=== PATIENT | female | born 1980 | race Caucasian/White ===

== ENCOUNTER 2025-02-03 14:22 | Emergency (ER) | payer BC, MEDICAID ==
[~2025-02-03] VITALS: Ht 165.1 cm; Wt 114.0 kg
[2025-02-03 14:25] VITALS: O2SAT 99
[2025-02-03] MEDS ORDERED: POLYETHYLENE GLYCOL 3350 (17GM) 1 DOSE PACK PO ONE (15:00)
[2025-02-03] MEDS ORDERED: KETOROLAC 15MG/ML VIAL IV ONE (15:00)
[2025-02-03] MEDS ORDERED: ONDANSETRON HCL 4MG/2ML INJ IV ONE (15:00)
[2025-02-03] MEDS: SODIUM CHLORIDE 0.9% 1,000 ML IV ONE (15:28)
[2025-02-03 15:40] LABS: BASOPHILS % 1.0 % (0.0-2.0); EOSINOPHILS % 0.5 % (0.0-5.0); HEMATOCRIT. 41.9 % (36.0-48.0); HEMOGLOBIN. 13.7 g/dL (12.0-16.0); LYMPHOCYTES % 14.6 % (20.0-50.0); MEAN PLATELET VOLUME 8.4 fl (7.4-10.4); MONOCYTES % 6.8 % (2.0-8.0); NEUTROPHILS % 77.1 % (40.0-76.0); PLATELET 433 x1000/uL (130-400); RED BLOOD CELL COUNT 4.87 mill/uL (4.2-5.4); RED CELL DISTRIBUTION WIDTH 14.3 % (11.6-14.6)
[2025-02-03 15:55] LABS: CREATININE 0.9 mg/dL (0.6-1.0)
[2025-02-03 15:56] LABS: UREA NITROGEN BLOOD < 5 mg/dL (9-23)
[2025-02-03 15:57] LABS: ASPARTATE AMINOTRANSFERASE 43 IU/L (<34); B-HCG QUANTITATIVE < 1 mIU/mL (<6)
[2025-02-03 15:58] LABS: BILIRUBIN DIRECT 0.2 mg/dL (<=3.0); BILIRUBIN TOTAL 0.6 mg/dL (0.1-1.0); PROTEIN TOTAL 8.6 g/dL (6.0-8.3)
[2025-02-03 16:57] LABS: CLARITY URINE CLOUDY (CLEAR); COLOR URINE DARK YELLOW (YELLOW); GLUCOSE URINE NEGATIVE (NEGATIVE); KETONES URINE 1+ (NEGATIVE); LEUKOCYTE ESTERASE URINE 1+ (NEGATIVE); NITRITE URINE NEGATIVE (NEGATIVE); OCCULT BLOOD URINE NEGATIVE (NEGATIVE); PH URINE 7.0 (4.5-8.0); PROTEIN URINE TRACE (NEGATIVE); SPECIFIC GRAVITY URINE 1.023 (1.005-1.030); UROBILINOGEN URINE 1.0 E.U./dL (0.2-1.0)
[2025-02-03 17:13] LABS: BACTERIA URINE 3+; RBC URINE 0-2 /hpf (0-2); SQUAMOUS EPITHELIAL CELL URINE 3+ /lpf (RARE/1+)
[2025-02-03] MEDS: ONDANSETRON HCL 4MG/2ML INJ IV SCH (17:17)
[2025-02-03] MEDS: KETOROLAC 15MG/ML VIAL IV SCH (17:17)
[2025-02-03] MEDS: LORAZEPAM 2MG/ML UD SYRINGE IV SCH (17:17)
[2025-02-03 17:20] LABS: *AMPHETAMINES SCREEN URINE NEGATIVE (NEGATIVE); *BARBITURATES SCREEN URINE NEGATIVE (NEGATIVE); *BENZODIAZEPINES SCREEN URINE NEGATIVE (NEGATIVE); *COCAINE SCREEN URINE NEGATIVE (NEGATIVE); CANNABINOID URINE SCREEN NEGATIVE (NEGATIVE); ECSTASY MDMA SCREEN URINE NEGATIVE (NEGATIVE); METHADONE URINE SCREEN NEGATIVE (NEGATIVE); OPIATES URINE SCREEN NEGATIVE (NEGATIVE); PHENCYCLIDINE URINE SCREEN NEGATIVE (NEGATIVE)
[2025-02-03] MEDS: POLYETHYLENE GLYCOL 3350 (17GM) 1 DOSE PACK PO SCH (18:28)
[2025-02-03] MEDS: LACTULOSE ENEMA 1,000ML BOTTLE PR ONE (18:28)
[2025-02-03] MEDS: NA PHOS,M-B/NA PHOS,DI-BA ENEMA 118ML PR ONE (18:28)
[2025-02-03] MEDS ORDERED: DOCU-138 MT (18:45)
[2025-02-03] MEDS ORDERED: SENN-371 MT (18:45)
[2025-02-03] MEDS ORDERED: FEO PR (18:45)
[2025-02-03] MEDS ORDERED: POLY17PO3 MT (18:45)
[2025-02-03] MEDS ORDERED: HYDR-459 MT (18:46)
[2025-02-03 19:06] VITALS: BP 111/75; PULSE 80; RESP 18; TEMP 36.6; O2SAT 99
== END 2025-02-03 19:07 | disposition home or self-care (01) ==
LOC: ER 14:22 → EDBEDREQ 15:28 → CANBEDREQ 18:58 → ER 19:07
DX: K59.00 Constipation, unspecified (principal); E03.9 Hypothyroidism, unspecified; F41.9 Anxiety disorder, unspecified; R10.20 Pelvic and perineal pain unspecified side; Z79.899 Other long term (current) drug therapy; Z98.890 Other specified postprocedural states
CPT/HCPCS: 80076; 80305; 80048; 81003; 84702; 83605; 83690; 83735; 85025; 36415; 74177; 96361; 96374; 96375; 99285; Q9967; J1885; J2060; J2405; J7030; Z7610 ×2